=== PATIENT | female | born 2000 | race Caucasian/White ===

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

== ENCOUNTER → 2024-04-26 | Outpatient (REF) | payer OTHER ==
[~2024-04-26] MED LIST changes: +ACET-897 PO; +BUSP5TA PO; +EPIN0.3I11 IM; +IBUP200C29 PO; +ISIB1TAB PO; +LAMO100T3 PO; +MELATAB3 PO; +OMEP-173 PO; +ONDA-282 PO; +PRAZ2CAP PO; +PRED10TA2 PO; +PROP60CA PO
== END ==
LOC: M LAB REF 15:43
PROVIDERS: ATTEND Physician Assistant
DX: J11.1 Influenza due to unidentified influenza virus with other respiratory manifestations (principal)

== ENCOUNTER 2024-07-18 11:20 | Outpatient (CLI) | payer BC, OTHER ==
[~2024-07-18] VITALS: Ht 160 cm; Wt 68.2 kg
[2024-07-18 11:30] VITALS: BP 136/79; O2SAT 98
[2024-07-18] MEDS: VEDOLIZUMAB 300 MG in NS 250 ML IV ONE (12:20)
[2024-07-18 13:05] VITALS: BP 132/88; O2SAT 98
[2024-07-18 13:43] VITALS: BP 121/76; O2SAT 97
== END 2024-07-18 13:43 ==
LOC: M INFU 11:20
PROVIDERS: ATTEND Internal Medicine Gastroenterology
DX: K50.919 Crohn's disease, unspecified, with unspecified complications (principal)
CPT/HCPCS: 96413; J3380

== ENCOUNTER 2024-08-01 11:35 | Outpatient (CLI) | payer BC, OTHER ==
[~2024-08-01] VITALS: Ht 160 cm; Wt 68.2 kg
[2024-08-01 11:55] VITALS: BP 105/53; O2SAT 98
[2024-08-01] MEDS: VEDOLIZUMAB 300 MG in NS 250 ML IV ONE (12:18)
[2024-08-01 12:58] VITALS: BP 116/59; O2SAT 99
== END 2024-08-01 13:00 ==
LOC: M INFU 11:35
PROVIDERS: ATTEND Internal Medicine Gastroenterology
DX: K50.919 Crohn's disease, unspecified, with unspecified complications (principal)
CPT/HCPCS: 96413; J3380

== ENCOUNTER 2024-08-29 11:13 | Outpatient (CLI) | payer BC, OTHER ==
[~2024-08-29] VITALS: Ht 160 cm; Wt 70.5 kg
[2024-08-29 11:20] VITALS: BP 110/65; O2SAT 100
[2024-08-29] MEDS: VEDOLIZUMAB 300 MG in NS 250 ML IV ONE (11:55)
[2024-08-29 12:35] VITALS: BP 121/58; O2SAT 100
== END 2024-08-29 12:35 | disposition home or self-care (01) ==
LOC: M INFU 11:13
PROVIDERS: ATTEND Internal Medicine Gastroenterology
DX: K50.919 Crohn's disease, unspecified, with unspecified complications (principal)
CPT/HCPCS: 96413; J3380

== ENCOUNTER 2024-10-24 11:10 | Outpatient (CLI) | payer BC, OTHER ==
[~2024-10-24] VITALS: Ht 160 cm; Wt 68.1 kg
[2024-10-24 11:43] VITALS: BP 132/69; O2SAT 99
[2024-10-24] MEDS: VEDOLIZUMAB 300 MG in NS 250 ML IV ONE (12:04)
[2024-10-24 12:43] VITALS: BP 122/72; O2SAT 98
== END 2024-10-24 12:44 | disposition home or self-care (01) ==
LOC: M INFU 11:10
PROVIDERS: ATTEND Internal Medicine Gastroenterology
DX: K50.919 Crohn's disease, unspecified, with unspecified complications (principal)
CPT/HCPCS: 96413; J3380

== ENCOUNTER 2024-11-11 10:46 | Inpatient (IN) | payer BC, OTHER ==
[~2024-11-11] VITALS: Ht 160 cm; Wt 68.2 kg
[2024-11-11 12:00] VITALS: BP 123/70; TEMP 98.1; O2SAT 96
[2024-11-11 12:55] LABS: BASO # 0.0 10^3/uL (0.0-0.2); BASO % 0.2 % (0.0-1.0); EOS # 0.0 10^3/uL (0.0-0.5); EOS % 0.0 % (0.0-3.0); LYMPH # 1.0 10^3/uL (1.5-5.0); LYMPH % 6.1 % (24.0-44.0); MONO # 0.3 10^3/uL (0.0-0.8); MONO % 1.9 % (2.0-8.0); NEUTROPHILS # 14.2 10^3/uL (1.5-8.5); NEUTROPHILS % 91.5 % (36.0-66.0); PLATELET COUNT, AUTOMATED 240 10^3/uL (150-450)
[2024-11-11 13:02] LABS: ERYTHROCYTE SEDIMENTATION RATE 24 mm/hr (0-20)
[2024-11-11] MEDS: MORPHINE 2 MG/ML 1 ML VIAL IV ONE (13:10)
[2024-11-11] MEDS ORDERED: NALOXONE INJ 0.4 MG/1 ML VIAL IV PRN (13:10)
[2024-11-11] MEDS: ACETAMINOPHEN *IV* 1,000 MG in IV 1 EA IV ONE (13:10)
[2024-11-11 13:27] LABS: CALCIUM LEVEL 8.8 MG/DL (8.5-10.1); CARBON DIOXIDE LEVEL 20 MMOL/L (20-31); CHLORIDE LEVEL 106 MMOL/L (98-107); CREATININE FOR GFR 0.87 MG/DL (0.55-1.30); GLOMERULAR FILTRATION RATE > 90.0 (>60); POTASSIUM SERUM 3.8 MMOL/L (3.5-5.1); SODIUM LEVEL 141 MMOL/L (136-145)
[2024-11-11] MEDS: LR 1,000 ML IV SCH (13:31)
[2024-11-11] MEDS: ONDANSETRON 4MG 2ML VIAL IV SCH (13:33)
[2024-11-11 14:17] LABS: C REACTIVE PROTEIN QUANTITATIV 16.63 MG/DL (<1.0)
[2024-11-11] MEDS ORDERED: MELO15TA28 PO (14:23)
[2024-11-11] MEDS ORDERED: LAMO200T3 PO (14:23)
[2024-11-11] MEDS ORDERED: DICY1CAP8 PO (14:23)
[2024-11-11] MEDS ORDERED: ENTY1INJ IV (14:23)
[2024-11-11] MEDS ORDERED: ATOR1TAB19 PO (14:23)
[2024-11-11] MEDS ORDERED: BUSP10TA PO (14:23)
[2024-11-11] MEDS ORDERED: ONDA-282 PO (14:23)
[2024-11-11] MEDS ORDERED: HOME MED LIST COMPLETE! XX SCH (14:25)
[2024-11-11] MEDS: KETOROLAC 30 MG/ML 1 ML VIAL IV SCH (14:43)
[2024-11-11 16:30] LABS: MONO SCRN NEGATIVE (NEGATIVE)
[2024-11-11] MEDS: D5W/0.45% SODIUM CHLORIDE 1,000 ML IV SCH (16:48)
[2024-11-11] MEDS: CLINDAMYCIN 900 MG in IV 1 EA IV SCH (16:48)
[2024-11-11] MEDS ORDERED: MORPHINE 2 MG/ML 1 ML VIAL IV PRN (17:00)
[2024-11-11] MEDS: CHLORASEPTIC SPRAY MT SCH (17:00)
[2024-11-11] MEDS: lamoTRIgine 100 MG TAB PO SCH (18:19)
[2024-11-11] MEDS: PROPRANOLOL 60MG LA CAP PO SCH (18:19)
[2024-11-11 20:03] VITALS: BP 101/56; TEMP 96.1; O2SAT 99
[2024-11-11] MEDS: PRAZOSIN 1 MG CAP PO SCH (21:04)
[2024-11-11 23:41] VITALS: BP 101/52; TEMP 97.2; O2SAT 97
[2024-11-12] VITALS (7 sets, daily range): BP systolic 97–132; BP diastolic 53–69; TEMP 97.1–98.3; O2SAT 96–98
[2024-11-12 05:18] LABS: BASO # 0.0 10^3/uL (0.0-0.2); BASO % 0.1 % (0.0-1.0); EOS # 0.0 10^3/uL (0.0-0.5); EOS % 0.0 % (0.0-3.0); LYMPH # 1.1 10^3/uL (1.5-5.0); LYMPH % 8.9 % (24.0-44.0); MONO # 0.2 10^3/uL (0.0-0.8); MONO % 1.3 % (2.0-8.0); NEUTROPHILS # 10.6 10^3/uL (1.5-8.5); NEUTROPHILS % 89.3 % (36.0-66.0); PLATELET COUNT, AUTOMATED 276 10^3/uL (150-450)
[2024-11-12 05:42] LABS: CALCIUM LEVEL 8.9 MG/DL (8.5-10.1); CARBON DIOXIDE LEVEL 21 MMOL/L (20-31); CHLORIDE LEVEL 108 MMOL/L (98-107); CREATININE FOR GFR 0.71 MG/DL (0.55-1.30); GLOMERULAR FILTRATION RATE > 90.0 (>60); POTASSIUM SERUM 4.0 MMOL/L (3.5-5.1); SODIUM LEVEL 142 MMOL/L (136-145)
[2024-11-12] MEDS: LR 1,000 ML IV ONE ×2 (08:26→12:47)
[2024-11-12] MEDS: MIDODRINE 5 MG TAB PO ONE (08:27)
[2024-11-12] MEDS: ATORVASTATIN 10 MG TAB PO SCH (08:28)
[2024-11-12 09:08] LABS: C REACTIVE PROTEIN QUANTITATIV 16.25 MG/DL (<1.0)
[2024-11-12 09:32] LABS: ERYTHROCYTE SEDIMENTATION RATE 18 mm/hr (0-20)
[2024-11-12] MEDS: NS 0.45% 1,000 ML IV ONE (10:53)
[2024-11-12] MEDS: ALPRAZolam 0.25 MG TAB PO ONE (10:53)
[2024-11-12] MEDS ORDERED: ISOVUE-370 76% 100 ML VIAL As Ordered ONE (12:16)
[2024-11-12] MEDS: ACETAMINOPHEN 325 MG/10.15 ML UDC GT PRN (12:46)
[2024-11-12] MEDS: AMPICILLIN SOD/SULBACTAM SOD 3 GM in DEXTROSE 5% (D5W) MINI-BAG PLU 100 ML IV SCH (18:15)
[2024-11-13] VITALS (7 sets, daily range): BP systolic 108–144; BP diastolic 55–86; TEMP 97.2–98; O2SAT 97–99
[2024-11-13] MEDS: PERCOCET 5MG/325MG TAB PO PRN (00:32)
[2024-11-13 05:49] LABS: BASO # 0.0 10^3/uL (0.0-0.2); BASO % 0.1 % (0.0-1.0); EOS # 0.0 10^3/uL (0.0-0.5); EOS % 0.0 % (0.0-3.0); LYMPH # 1.2 10^3/uL (1.5-5.0); LYMPH % 8.5 % (24.0-44.0); MONO # 0.3 10^3/uL (0.0-0.8); MONO % 2.1 % (2.0-8.0); NEUTROPHILS # 12.9 10^3/uL (1.5-8.5); NEUTROPHILS % 88.8 % (36.0-66.0); PLATELET COUNT, AUTOMATED 284 10^3/uL (150-450)
[2024-11-13 06:13] LABS: CALCIUM LEVEL 9.0 MG/DL (8.5-10.1); CARBON DIOXIDE LEVEL 22 MMOL/L (20-31); CHLORIDE LEVEL 106 MMOL/L (98-107); CREATININE FOR GFR 0.71 MG/DL (0.55-1.30); GLOMERULAR FILTRATION RATE > 90.0 (>60); POTASSIUM SERUM 3.9 MMOL/L (3.5-5.1); SODIUM LEVEL 142 MMOL/L (136-145)
[2024-11-13] MEDS ORDERED: AMOXTAB PO (17:49)
[2024-11-13] MEDS: ALPRAZolam 0.25 MG TAB PO PRN (23:42)
[2024-11-13] MEDS: DICYCLOMINE 10 MG CAP PO PRN (23:43)
[2024-11-14 04:00] VITALS: BP 120/75; TEMP 98.4; O2SAT 98
[2024-11-14] MEDS ORDERED: PRED10TA2 PO (06:31)
[2024-11-14 08:24] LABS: C REACTIVE PROTEIN QUANTITATIV 1.79 MG/DL (<1.0); CALCIUM LEVEL 8.7 MG/DL (8.5-10.1); CARBON DIOXIDE LEVEL 24 MMOL/L (20-31); CHLORIDE LEVEL 106 MMOL/L (98-107); CREATININE FOR GFR 0.69 MG/DL (0.55-1.30); GLOMERULAR FILTRATION RATE > 90.0 (>60); POTASSIUM SERUM 3.8 MMOL/L (3.5-5.1); SODIUM LEVEL 142 MMOL/L (136-145)
[2024-11-14 11:12] LABS: BASO # 0.0 10^3/uL (0.0-0.2); BASO % 0.1 % (0.0-1.0); EOS # 0.0 10^3/uL (0.0-0.5); EOS % 0.0 % (0.0-3.0); LYMPH # 1.1 10^3/uL (1.5-5.0); LYMPH % 11.3 % (24.0-44.0); MONO # 0.3 10^3/uL (0.0-0.8); MONO % 2.9 % (2.0-8.0); NEUTROPHILS # 8.2 10^3/uL (1.5-8.5); NEUTROPHILS % 84.9 % (36.0-66.0); PLATELET COUNT, AUTOMATED 347 10^3/uL (150-450)
[2024-11-14 11:19] LABS: ERYTHROCYTE SEDIMENTATION RATE 4 mm/hr (0-20)
[2024-11-14 11:37] VITALS: BP 127/60; TEMP 98.1; O2SAT 98
== END 2024-11-14 12:20 | disposition home or self-care (01) | DRG 113 ==
LOC: M PCU 11:52 → M MS4PR 11-13 21:15
PROVIDERS: ADMIT Internal Medicine; ATTEND Internal Medicine
DX: J36 Peritonsillar abscess (principal); I95.9 Hypotension, unspecified; K50.90 Crohn's disease, unspecified, without complications; R13.10 Dysphagia, unspecified; F41.9 Anxiety disorder, unspecified; F31.9 Bipolar disorder, unspecified; E03.9 Hypothyroidism, unspecified; G43.909 Migraine, unspecified, not intractable, without status migrainosus; Z79.899 Other long term (current) drug therapy; Z91.018 Allergy to other foods

== ENCOUNTER 2024-12-28 15:23 | Outpatient (CLI) | payer OTHER, BC ==
[~2024-12-28] VITALS: Ht 160 cm; Wt 68.2 kg
[~2024-12-28 15:23] MED LIST changes: +AMOXTAB PO; +ATOR1TAB19 PO; +BUSP10TA PO; +DICY1CAP8 PO; +ENTY1INJ IV; +LAMO200T3 PO; +MELO15TA28 PO; +VEDOLIZUMAB 300 MG in NS 250 ML IV ONE
[2024-12-28 15:40] VITALS: BP 127/75; O2SAT 97
[2024-12-28] MEDS: VEDOLIZUMAB 300 MG in NS 250 ML IV ONE (16:16)
[2024-12-28 16:53] VITALS: BP 109/61; O2SAT 100
== END 2024-12-28 16:55 | disposition home or self-care (01) ==
LOC: M INFU 15:23
PROVIDERS: ATTEND Internal Medicine Gastroenterology
DX: K50.018 Crohn's disease of small intestine with other complication (principal)
CPT/HCPCS: 96413; J3380

== ENCOUNTER 2025-01-22 15:45 | Emergency (ER) | payer OTHER, BC ==
[~2025-01-22] VITALS: Ht 160 cm; Wt 68.5 kg
[~2025-01-22 15:45] MED LIST changes: -VEDOLIZUMAB 300 MG in NS 250 ML IV ONE
[2025-01-22 16:25] LABS: BASO # 0.0 10^3/uL (0.0-0.2); BASO % 0.3 % (0.0-1.0); EOS # 0.0 10^3/uL (0.0-0.5); EOS % 0.3 % (0.0-3.0); LYMPH # 1.8 10^3/uL (1.5-5.0); LYMPH % 24.9 % (24.0-44.0); MONO # 0.4 10^3/uL (0.0-0.8); MONO % 5.4 % (2.0-8.0); NEUTROPHILS # 4.9 10^3/uL (1.5-8.5); NEUTROPHILS % 69.1 % (36.0-66.0); PLATELET COUNT, AUTOMATED 276 10^3/uL (150-450)
[2025-01-22 17:01] LABS: ALT/SGPT 15 U/L (7.0-40); AST/SGOT 16 U/L (<34); CALCIUM LEVEL 9.4 MG/DL (8.5-10.1); CARBON DIOXIDE LEVEL 23 MMOL/L (20-31); CHLORIDE LEVEL 108 MMOL/L (98-107); CREATININE FOR GFR 1.49 MG/DL (0.55-1.30); GLOMERULAR FILTRATION RATE 50.3 (>60); POTASSIUM SERUM 4.1 MMOL/L (3.5-5.1); SODIUM LEVEL 143 MMOL/L (136-145)
[2025-01-22 20:19] LABS: KETONE, URINE AUTO RFX NEGATIVE (NEGATIVE); LEUKOCYTE ESTERASE UR AUTO RFX NEGATIVE (NEGATIVE); MUCUS, URINE RFX SMALL (NEGATIVE); NITRITE, URINE AUTO RFX NEGATIVE (NEGATIVE); RBC, URINE AUTO RFX 4 /HPF (0-3); SQUAM EPITHELIAL CELL UR AURFX 0 /HPF (0-6); WBC, URINE AUTO RFX 1 /HPF (0-3)
[2025-01-22] MEDS: NS (Normal Saline) 0.9% 1,000 ML IV ONE (20:40)
[2025-01-22 20:55] LABS: URINE PREG TEST NEGATIVE (NEGATIVE)
[2025-01-22 21:00] VITALS: BP 110/60
[2025-01-22 21:31] LABS: INR 1.02
[2025-01-22] MEDS: PIPERACILLIN/TAZOBACTAM SOD 3.375 GM in DEXTROSE 5% (D5W) ADV/MINI-BAG 50 ML IV ONE (21:34)
[2025-01-22] MEDS: PANTOPRAZOLE 40MG VIAL IV ONE (21:34)
[2025-01-22 23:38] VITALS: TEMP 99.7
[2025-01-23] MEDS: ACETAMINOPHEN *IV* 1,000 MG in IV 1 EA IV ONE (00:41)
[2025-01-23] MEDS: predniSONE 20 MG TAB PO ONE (00:42)
[2025-01-23] MEDS: FAMOTIDINE 20 MG/2 ML VIAL IVP ONE (01:25)
[2025-01-23 01:45] VITALS: O2SAT 96
[2025-01-23] MEDS: ONDANSETRON 4MG/2ML VIAL IV ONE (01:45)
[2025-01-23] MEDS ORDERED: AMOXTAB PO (02:12)
[2025-01-23] MEDS ORDERED: PRED20TA PO (02:12)
[2025-01-23] MEDS ORDERED: PROC10TA5 PO (02:12)
[2025-01-23] MEDS: PROCHLORPERAZINE 5MG TAB PO PRN (03:21)
== END 2025-01-23 03:15 | disposition home or self-care (01) ==
LOC: M ED 15:45
DX: K50.918 Crohn's disease, unspecified, with other complication (principal); Z87.19 Personal history of other diseases of the digestive system; Z79.899 Other long term (current) drug therapy; Z91.018 Allergy to other foods
CPT/HCPCS: 74021; 74177; 80048; 80076; 81001; 83605; 83690; 84703; 85025; 85610; 85730; 86850; 86900; 86901; 87040; 96365; 96366; 96368; 96375; 99285; J0131; J1308; J2405; J2470; J2543; J7512